=== PATIENT | male | born 1960 | race Caucasian/White ===

== ENCOUNTER 2019-06-30 16:12 | Emergency (ER) | payer MEDICARE ==
[~2019-06-30] VITALS: Ht 188 cm; Wt 119.0 kg
[2019-06-30] MEDS ORDERED: ASPIRIN 81 MG TABLET CHEW PO ONE (16:30)
[2019-06-30] MEDS ORDERED: ASPIRIN 81 MG TABLET CHEW ONE (16:37)
--- NOTE | 2019-06-30 16:46 | NUR ---
patient ambulated to er and to bed reporting slow onset chest pain; ambulation to hospital exacerbated condition. Pt reports pain is currently happening; patient is placed on monitor; vss. EKG and 6 lead show no changes in ST segment. Provider to bedside; orders placed pt verbalized understanding.
[2019-06-30 16:48] LABS: BASOPHILS # (AUTO) 0.04 x10^3/uL (0-0.1); BASOPHILS % (AUTO) 1 % (0-1); EOSINOPHILS # (AUTO) 0.12 x10^3/uL (0-0.4); EOSINOPHILS % (AUTO) 2 % (1-7); LYMPHOCYTES # (AUTO) 1.44 x10^3/uL (1-3.4); LYMPHOCYTES % (AUTO) 28 % (22-44); MD NO; MEAN CORPUSCULAR HEMOGLOBIN 31.5 pg (27.5-34.5); MEAN CORPUSCULAR HGB CONC 33.3 g/dL (33.2-36.2); MEAN CORPUSCULAR VOLUME 94.6 fL (81-97); MEAN PLATELET VOLUME 6.9 fL (7.4-10.4); MONOCYTES # (AUTO) 0.62 x10^3/uL (0.2-0.8); MONOCYTES % (AUTO) 12 % (2-9); NEUTROPHILS # (AUTO) 2.92 x10^3/uL (1.8-6.8); NEUTROPHILS % (AUTO) 57 % (42-75); PLATELET COUNT 245 x10^3/uL (130-400); RED BLOOD COUNT 4.35 x10^6/uL (4.38-5.82); RED CELL DISTRIBUTION WIDTH 13.3 % (9.4-14.8)
[2019-06-30 16:59] LABS: ALBUMIN 3.5 g/dL (3.4-5.0); ANION GAP 7 mmol/L (5-15); CALCIUM 8.4 mg/dL (8.5-10.1); CHLORIDE 111 mmol/L (98-107); CREATININE 1.49 mg/dL (0.7-1.3)
[2019-06-30 17:03] LABS: TROPONIN I < 0.015 ng/mL (0.000-0.045)
[2019-06-30 17:26] VITALS: BP 124/73
--- NOTE | 2019-06-30 17:26 | NUR ---
Task RN: Discharge instructions discussed with patient including when to return to emergency department, patient verbalizes understanding. Patient dresses independently, ambulates independently with steady gait in no acute distress.
== END 2019-06-30 17:29 | disposition home or self-care (01) ==
LOC: ED 16:53
DX: R07.9 Chest pain, unspecified (principal); I25.2 Old myocardial infarction
CPT/HCPCS: 36415; 71045; 80048; 82040; 83880; 84484; 85025; 93005; 99284